=== PATIENT | female | born 1995 | race Caucasian/White ===

== ENCOUNTER 2023-03-08 18:29 | Emergency (ER) | payer BC, OTHER ==
[2023-03-08 18:38] VITALS: BP 111/64; PULSE 96; RESP 18; TEMP 99.6; BMI 26.6
[2023-03-08] MEDS ORDERED: ACETAMINOPHEN 1000 MG/100 ML BAG IVPB ONE (19:24)
[2023-03-08] MEDS ORDERED: FAMOTIDINE 20 MG/50 ML IVPB 20 MG/50 ML MG IVPB ONE ×2 (19:24→19:33)
[2023-03-08] MEDS ORDERED: SODIUM CHLORIDE 1,000 ML IV STA (19:24)
[2023-03-08] MEDS ORDERED: ONDANSETRON 4 MG/2 ML VIAL IVPUSH ONE (19:24)
[2023-03-08] MEDS ORDERED: ONDANSETRON 4 MG/2 ML VIAL ONE (19:33)
[2023-03-08] MEDS ORDERED: ACETAMINOPHEN INJECTION 100 ML IVPB ONE (20:01)
[2023-03-08 20:26] LABS: BASO % 0.2 % (0-2.0); EOS % 0.1 % (0-4.5); HEMATOCRIT 34.1 % (32.4-45.2); HEMOGLOBIN 10.8 GM/dL (10.7-15.3); LYMPH % 9.5 % (8-40); MCH 21.7 pg (25.7-33.7); MCHC 31.6 g/dl (32.0-36.0); MEAN CELL VOLUME 68.6 fl (80-96); MONO % 5.7 % (3.8-10.2); NEUT % 84.5 % (42.8-82.8); PLATELET COUNT 446 10^3/uL (134-434); RBC 4.97 M/mm3 (3.60-5.2); WHITE BLOOD COUNT 10.4 K/mm3 (4.0-10.0)
[2023-03-08 20:34] LABS: POTASSIUM 3.8 mmol/L (3.5-5.1)
[2023-03-08 20:35] LABS: URINE APPEARANCE CLEAR; URINE BILIRUBIN NEGATIVE (NEGATIVE); URINE COLOR YELLOW; URINE GLUCOSE (UA) NEGATIVE (NEGATIVE); URINE KETONE 2+ (NEGATIVE); URINE LEUK ESTERASE NEGATIVE (NEGATIVE); URINE NITRITE NEGATIVE (NEGATIVE); URINE PROTEIN NEGATIVE (NEGATIVE)
[2023-03-08 20:37] LABS: CALCIUM 8.8 mg/dL (8.5-10.1)
[2023-03-08 20:38] LABS: BLOOD UREA NITROGEN 7.4 mg/dL (7-18)
[2023-03-08 20:41] LABS: CREATININE 0.6 mg/dL (0.55-1.3)
[2023-03-08 20:43] LABS: BILIRUBIN,TOTAL 0.6 mg/dL (0.2-1); TOT PROT 7.1 g/dl (6.4-8.2)
[2023-03-08 21:33] LABS: ANISOCYTOSIS 1+; PLATELET ESTIMATE ADEQUATE
== END 2023-03-08 23:08 | disposition home or self-care (01) ==
LOC: JER 18:29
PROC: 3E033GC Introduction of Other Therapeutic Substance into Peripheral Vein, Percutaneous Approach (ICD-10-PCS; principal; 2023-03-08)
PROC: 3E033NZ Introduction of Analgesics, Hypnotics, Sedatives into Peripheral Vein, Percutaneous Approach (ICD-10-PCS; 2023-03-08)
PROC: 3E033GC Introduction of Other Therapeutic Substance into Peripheral Vein, Percutaneous Approach (ICD-10-PCS; 2023-03-08)
DX: R10.33 Periumbilical pain (principal); R11.2 Nausea with vomiting, unspecified; R19.7 Diarrhea, unspecified; K52.9 Noninfective gastroenteritis and colitis, unspecified; M46.1 Sacroiliitis, not elsewhere classified; M54.50 Low back pain, unspecified
CPT/HCPCS: 36415; 74177-TC; 80053; 81003; 83690; 84703; 85025; 87086; 99285-25; Q9967